=== PATIENT | female | born 1975 | race Caucasian/White ===

== ENCOUNTER → 2016-06-29 | Outpatient (CLI) | payer OTHER ==
[~2016-06-29] MED LIST: IBUP600 PO; LEVO112T2 PO; OMEP20TA39 PO; OXYC1SOL5 PO; PERI8.6T PO
[2016-06-29 07:40] LABS: FOLLICLE STIMULATING HORMONE 58.4 mIU/mL; FREE T4 0.88 NG/DL (0.76-1.46); LUTEINIZING HORMONE 36.8 mIU/mL
== END ==
LOC: CLAB 06:45
PROVIDERS: ATTEND Obstetrics & Gynecology
DX: N92.4 Excessive bleeding in the premenopausal period (principal); N92.6 Irregular menstruation, unspecified
CPT/HCPCS: 36415; 83001; 83002; 84439; 84443

== ENCOUNTER → 2016-10-18 | Outpatient (CLI) | payer OTHER ==
[2016-10-18 07:31] LABS: LUTEINIZING HORMONE 3.2 mIU/mL
== END ==
LOC: CLAB 06:38
PROVIDERS: ATTEND Obstetrics & Gynecology
DX: R53.83 Other fatigue (principal); N92.5 Other specified irregular menstruation; N92.6 Irregular menstruation, unspecified
CPT/HCPCS: 36415; 83001; 83002; 84146

== ENCOUNTER → 2016-11-17 | Outpatient (CLI) | payer OTHER | LOC: CLAB 07:39 | PROVIDERS: ATTEND Obstetrics & Gynecology | DX: N92.1 Excessive and frequent menstruation with irregular cycle (principal); R94.7 Abnormal results of other endocrine function studies | CPT/HCPCS: 36415; 84146 ==

== ENCOUNTER → 2017-06-15 | Outpatient (CLI) | payer OTHER ==
[2017-06-15 10:18] LABS: FREE T3 2.43 PG/ML (2.18-3.98); FREE T4 1.1 NG/DL (0.76-1.46)
[2017-06-16 19:51] LABS: THYROGLOB ABS LESS THAN 1 IU/mL (< OR = 1); THYROID PEROX AB (MICROSOMAL) 373 IU/mL (<9)
== END ==
LOC: CLAB 08:57
PROVIDERS: ATTEND Internal Medicine
DX: E03.9 Hypothyroidism, unspecified (principal)
CPT/HCPCS: 36415; 84439; 84443; 84481; 86376; 86800